=== PATIENT | female | born 1965 | race Caucasian/White ===

== ENCOUNTER → 2017-10-13 | Outpatient (CLI) | payer BC, OTHER ==
--- NOTE | 2017-10-13 09:14 | RADIOLOGY IMAGING REPORT ---
FACILITY: [facility] PATIENT NAME: Lexii Koch : 1965 MR: [id number] V: [id number] EXAM DATE: ORDERING PHYSICIAN: LAN DODD TECHNOLOGIST: Location: [facility] Patient: Lexii Koch : 1965 Visit/Account:[id number] Date of Sevice: 10/13/2017 LIVER HISTORY: Hep C COMPARISON: None. FINDINGS: Gallbladder: Unremarkable; no stones or sludge. Liver: Liver appears homogeneous with no demonstration of focal masses or hepatomegaly. Common duct: Normal, five mm diameter. Pancreas: Partially obscured by bowel, visualized aspects unremarkable. Right kidney: Unremarkable measuring 11.1 cm in length with a resistive index of 0.59 Upper abdominal aorta and IVC: Patent. Ascites: None visualized. IMPRESSION: Unremarkable right upper quadrant ultrasound Report Dictated By: Manda Chappell MD at 10/13/2017 9:08 AM Report E-Signed By: Manda Chappell MD at 10/13/2017 9:11 AM WSN:[id number]
--- NOTE | 2017-10-13 15:55 | RADIOLOGY IMAGING REPORT ---
FACILITY: [facility] PATIENT NAME: DONOVAN GOLD : [id number] MR: [id number] V: [id number] EXAM DATE: [id number] ORDERING PHYSICIAN: LAN DODD TECHNOLOGIST: Karen Perera PROCEDURE:BILATERAL DIGITAL SCREENING MAMMOGRAM WITH CAD ASSISTED INTERPRETATION & 3D TOMOSYNTHESIS COMPARISON:Prior mammograms 04/24/09, 04/22/09. INDICATIONS:SCREENING FINDINGS: Moderately heterogeneous fibroglandular tissue is seen throughout the breasts. The parenchymal pattern has remained stable allowing for difference in mammographic technique & patient positioning. There is no evidence of malignant appearing mass, malignant appearing calcifications or other secondary sign of malignancy in either breast. DIAGNOSTIC CATEGORY 1--NEGATIVE. RECOMMENDATIONS: ROUTINE MAMMOGRAM AND CLINICAL EVALUATION. IMPRESSION: BIRADS 1: Negative No significant abnormality is seen. Dictated by: Manda Chappell M.D. on 10/13/2017 at 10:16 Transcribed by: JUSTINO on 10/13/2017 at 10:25 Approved by: Manda Chappell M.D. on 10/13/2017 at 15:54 [facility]
== END ==
LOC: MAMO 06:04
PROVIDERS: ATTEND Nurse Practitioner Family
DX: Z12.31 Encounter for screening mammogram for malignant neoplasm of breast (principal); B18.2 Chronic viral hepatitis C
CPT/HCPCS: 76705; 77063; 77067

== ENCOUNTER 2018-11-28 01:31 | Day surgery (SDC) | payer BC ==
[~2018-11-28] VITALS: Ht 162.6 cm; Wt 58.5 kg
[~2018-11-28 01:31] MED LIST: BEET ROOT; CHOL10005 PO; IBUP-136 PO; L GA1CAP PO; LORA5TAB16 PO; OMEG100T3 PO; TRAZ50TA52 PO
[2018-11-28 07:21] VITALS: BP 130/90
[2018-11-28 09:05] VITALS: BP 102/66
--- NOTE | 2018-11-28 09:10 | Short(Outpt) Discharge Summary ---
Discharge Summary Reason for Hosp/Final Diag: (1) Colon cancer screening Status: Chronic Hospital Course & Plan: Colonoscopy completed without problems; normal. Departure Discharge to: Home, Self Care Discharge Instructions Home Meds Reported Medications [Beet Root] No Conflict Check, 1000 MG QDAY 11/22/18 Trazodone Hcl (TRAZODONE HCL) 50 Mg Tablet, 50 MG PO QHS 10/17/18 [place]-3 Fatty Acids (OMEGA-3) 100 Mg Tab.chew, 1000 MG PO QDAY, TAB.CHEW 10/17/18 L Gasseri/B Bifidum/B Longum (Audemat COLON HEALTH CAPSULE) 1 Each Capsule, 1 EACH PO, CAPSULE 10/17/18 Cholecalciferol (Vitamin D3) (VITAMIN D3) 1,000 Unit Tablet, 5000 UNITS PO QDAY, TAB 10/17/18 Ibuprofen (IBUPROFEN) 200 Mg Capsule, 600 MG PO QHS, CAPSULE 10/17/18 Loratadine (CLARITIN) 5 Mg Tab.rapdis, 5 MG PO QDAY 10/17/18 Diet: Regular Activity: As Tolerated Special Instructions: Your colonoscopy was completed without problems and your prep was excellent (Good Job!!). I didn't find any polyps or other abnormalities; your colonoscopy was normal. I recommend that your next colonoscopy be in 10 years. JACK COX MD Nov 28, 2018 09:10
[2018-11-28 09:15] VITALS: BP 111/77
[2018-11-28 09:30] VITALS: BP 119/77
[2018-11-28] MEDS ORDERED: LIDOCAINE/SOD BICARB 8.4% SYR ID ONE (09:30)
[2018-11-28] MEDS ORDERED: NORMOSOL R SOLN(*) 1000 ML BAG 1,000 ML IV PRN (09:30)
[2018-11-28 09:35] VITALS: BP 124/81
[2018-11-28 09:36] VITALS: BP 119/89
== END 2018-11-28 09:45 | disposition home or self-care (01) ==
LOC: OR 01:31
PROVIDERS: ATTEND Surgery
DX: Z12.11 Encounter for screening for malignant neoplasm of colon (principal); Z79.899 Other long term (current) drug therapy
CPT/HCPCS: 00812; G0121